=== PATIENT | male | born 1950 | race Caucasian/White ===

== ENCOUNTER 2022-11-18 10:53 | Outpatient (CLI) | payer OTHER, SELFPAY ==
--- NOTE | 2022-11-18 10:58 | USCV_ITS ---
Bradley Sanz Age: 72 Gender: M : 1950 Exam Date: 11/18/2022 11:15 Ordering Phys: Lionel Mendez DO Technologist: CT Exam Location: [facility] [place]_ Indication: left bruit Risk Factors: Previous Vascular Surgery: Right Brachial BP: / Left Brachial BP: / Right Left Velocity (cm/s) Spectral Plaque Velocity (cm/s) Spectral Plaque Syst/Diast Broadening Syst/Diast Broadening 63.80/ 13.70 Prox CCA 67.50 / 16.90 57.30/ 12.40 Mid CCA 55.30 / 15.90 46.20/ 11.10 Distal CCA 46.50 / 16.70 40.50/ 14.00 Prox ICA 47.80 / 15.90 55.50/ 19.70 Mid ICA 59.10 / 18.30 69.20/ 17.10 Distal ICA 67.20 / 20.40 101.20 ECA 487.70 1.08 ICA/CCA 1.00 Occluded Vertebral Antegrade / cm/s 47.50/ 11.50 cm/s Bi Subclavian Bi 125.6 87.20 [address] vert, stenosis left eca CONCLUSIONS Right ICA stenosis <50%. Mild atheromatous plaque right carotid bulb/ICA. Left ICA stenosis <50%. Moderate atheromatous plaque left carotid bulb/ICA. Normal antegrade Doppler flow noted in the left vertebral artery. Occlusion right vertebral artery. Prince Garcia MD (Electronically Signed) Final Date: 18 November 2022 15:52 S
== END 2022-11-18 10:54 | disposition home or self-care (01) ==
PROVIDERS: PCP Emergency Medicine Emergency Medical Services; Visit Provider Emergency Medicine Emergency Medical Services
DX: I65.01 Occlusion and stenosis of right vertebral artery (principal); R01.1 Cardiac murmur, unspecified
CPT/HCPCS: 93880